=== PATIENT | male | born 1990 | race African-American/Black ===

== ENCOUNTER → 2019-06-30 | Emergency (ER) | payer SELFPAY ==
[~2019-06-30] VITALS: Ht 177.8 cm; Wt 72.7 kg
[~2019-06-30] MED LIST: FAMOTIDINE/PF INJ 20 MG/2 ML VIAL IV ONE; HYDROCODONE/APAP 5/325MG 1 EACH TABLET ONE; HYDROCODONE/APAP 5/325MG 1 EACH TABLET PO ONE; IV NS 0.9% 1,000 ML BAG IV ONE; LIDOCAINE VISCOUS 2% UD 15 ML UDC MM ONE; LIDOCAINE VISCOUS 2% UD 15 ML UDC ONE; MAG HYDROX/AL HYDROX/SIMETH 30 ML UDC ONE; MAG HYDROX/AL HYDROX/SIMETH 30 ML UDC PO ONE
--- NOTE | 2019-06-30 09:49 | NUR ---
PATIENT CAME FROM HOME. PATIENT COMPLAINS OF ABDOMINAL PAIN. AAOX4. NAD. NO SOB. PATIENT STATES LAST BM WAS 2 DAYS AGO. WILL CONTINUE TO MONITOR PATIENT FOR SAFETY.
--- NOTE | 2019-06-30 09:55 | NUR ---
BLOOD DRAWN AND SENT TO LAB.
[2019-06-30 10:04] LABS: BASOPHILS % (AUTO) 0.8 % (0.0-2.0); HEMATOCRIT 45 % (39-51); HEMOGLOBIN 14.7 g/dL (13.5-17.5); LYMPHOCYTES # (AUTO) 1.5 /CMM (0.8-4.8); LYMPHOCYTES % (AUTO) 29.3 % (20.0-44.0); MEAN CORPUSCULAR HGB CONC 33 g/dl (31.0-36.0); MEAN CORPUSCULAR VOLUME 82 fL (80-96); MONOCYTES # (AUTO) 0.3 /CMM (0.1-1.30); NEUTROPHILS % (AUTO) 58.9 % (43.0-81.0); PLATELET COUNT (AUTO) 211 /CMM (150-450); RED BLOOD CELL COUNT(AUTO) 5.46 MIL/uL (4.5-6.0); WHITE BLOOD COUNT (AUTO) 5.1 K/uL (4.3-11.0)
[2019-06-30 10:11] LABS: CALCIUM, SERUM 9.5 mg/dL (8.5-10.1); CREATININE 1.2 mg/dL (0.6-1.3)
[2019-06-30 10:14] LABS: POTASSIUM 3.6 mmol/L (3.5-5.1)
[2019-06-30 10:25] LABS: ALBUMIN 4.5 g/dL (3.4-5.0); BILIRUBIN,DIRECT 0.1 mg/dL (0.0-0.2); BILIRUBIN,TOTAL 0.4 mg/dL (0.2-1.0); TOTAL PROTEIN, SERUM 8.4 g/dL (6.4-8.2)
--- NOTE | 2019-06-30 11:29 | NUR ---
PATIENT AWAKE ALERT PATIENTS AGREES TO CALL PMD IN 2 DAYS VERBALIZED UNDERSTANDING .
[2019-06-30 11:30] VITALS: BP 134/66
== END | disposition home or self-care (01) ==
LOC: ER 09:42
DX: R10.13 Epigastric pain (principal); F17.200 Nicotine dependence, unspecified, uncomplicated; Z60.2 Problems related to living alone
CPT/HCPCS: 36415; 71045; 74176; 80048; 80076; 83690; 85025; 96374; 99284; J3490